=== PATIENT | female | born 2000 | race Caucasian/White ===

== ENCOUNTER 2022-07-26 06:07 | Day surgery (SDC) | payer OTHER ==
[2022-07-26] MEDS ORDERED: DIPRIVAN 200 MG/20 ML IV ONE ×2 (06:21→07:54)
[2022-07-26] MEDS ORDERED: SUBLIMAZE 100 MCG/2 ML ONE (06:22)
[2022-07-26] MEDS ORDERED: Xylocaine 1% Vial 30 ML PF IJ ONE (06:22)
[2022-07-26] MEDS ORDERED: Marcaine Mpf 0.5% Vial 30 Ml ONE ×2 (06:22→07:13)
[2022-07-26] MEDS ORDERED: Versed 2 MG/2 ML Injection ONE (06:22)
[2022-07-26 06:30] LABS: HCG URINE TEST NEGATIVE (NEGATIVE)
[2022-07-26] MEDS ORDERED: Lactated Ringers 1,000 ML IV SCH (06:30)
[2022-07-26 06:56] VITALS: O2SAT 96
[2022-07-26] MEDS ORDERED: Lactated Ringers 1,000 ML IV ONE (06:58)
[2022-07-26] MEDS ORDERED: CEFAZOLIN 2 GM-D5W BAG** 2 GM/50 ML ML IV ONE (07:10)
[2022-07-26] MEDS ORDERED: CEFAZOLIN 2 GM-D5W BAG** 2 GM/50 ML ML IV SCH (07:30)
[2022-07-26] MEDS ORDERED: TORAdol 30 mg Injection ONE (08:15)
[2022-07-26] MEDS ORDERED: DEMEROL 50 MG ONE (08:57)
--- NOTE | 2022-07-26 09:01 | XRAY ---
Indication: Left 1st MTP arthrotomy. Intraoperative fluoroscopy provided for 16 seconds. 2 digital spot images submitted for interpretation demonstrates manipulation great toe. Correlate with intraoperative findings/report.
[2022-07-26 09:48] VITALS: BP 117/68; PULSE 77
--- NOTE | 2022-07-26 10:17 | OP ---
SURGERY DATE/TIME: 07/26/2022 0821 PREOPERATIVE DIAGNOSES: 1) Posttraumatic arthritis left distal interphalangeal joint. 2) Pain left foot. POSTOPERATIVE DIAGNOSES: 1) Posttraumatic arthritis left distal interphalangeal joint. 2) Pain left foot. PROCEDURES: 1) Arthrotomy left distal interphalangeal joint. 2) Exostectomy left distal phalanx. SURGEON: Farrukh Martinez DPM. RADIAL DRILL PRESS OPERATOR FOR PLASTIC: None. ANESTHESIA: MAC. HEMOSTASIS: Ankle tourniquet set to 250 mm of Mercury for 13 minutes. ESTIMATED BLOOD LOSS: Minimal. INJECTABLES: 18 cc of a 1:1 mixture of 1% lidocaine plain and 0.5% bupivacaine plain injected in a hallux block-type fashion. INDICATIONS FOR PROCEDURE: Rowena is a very pleasant 22-year-old female who while working for [employer] dropped a box on her toe. She was diagnosed by another physician with intraarticular fracture. This was treated conservatively and the patient did have continued pain going forward. At this time the patient has been seven months with this pain and has had multiple opinions from physicians and is looking for some relief. Discussion in regards to options were held with the patient. The patient would like to proceed with an option that is potentially definitive in fixing her pain. However, she is not interested in a fusion. Discussion continued and the patient would like to continue with a possible exostectomy for the intraarticular portion of the fracture in the distal interphalangeal joint. For this recommendation was to take the bone at a slight angle so if there is a heterotopic ossification that she is able to have possible growth with no recurrence into the joint. The patient agreed to this decision. No guarantees were provided. Initial presentation the option of arthrodesis was provided. The patient does understand that there is a possibility for failure. Discussion was held that the lateral collateral ligament maybe violated and a change in toe position is possible. However intraoperatively we will attempt to repair the lateral collateral ligament and the distal interphalangeal joint. The patient understands all risks including but not limited to infection, hematoma, seroma, possibility of delayed wound healing, nonwound healing, possibility of failure of surgical intervention, possible need for surgical intervention at a later date. No guarantees were provided as to the outcome of surgical intervention at this time. It is with that we decided to proceed. DESCRIPTION OF PROCEDURE AND FINDINGS: The patient was brought into the OR and placed on the OR table in the supine position. A well-padded ankle tourniquet was applied to the left ankle. The tourniquet was set to 250 mm of Mercury. Monitored anesthesia care was administered until the patient was sedated. The left lower extremity was then prepped and draped in the typical sterile fashion. A block was introduced into the toe in a hallux block-type fashion utilizing 10 cc of a 1:1 mixture of 1% lidocaine plain and 0.5% bupivacaine plain. Following this the tourniquet was inflated to 250 mm of Mercury after exsanguination. At this time a linear incision was made along the resting skin tension line at the top of the knuckle of the interphalangeal joint this was quickly dissected down to the level of the interphalangeal joint. Immediately a Deport was introduced into the site and run across the articular surface distally of the base of distal phalanx. There was a snag at the lateral aspect of this joint thought to be the intraarticular portion. There was an immediate step-off appreciated. From that standpoint we proceeded with flush to the joint utilizing rongeur. Under fluoroscopic guidance the intraarticular portion was resected at approximately 45 degree angle in order to prevent any growth into the joint. Following this the lateral collateral ligaments were repaired utilizing 4-0 Monocryl. The skin subcu was coapted in simple buried-type fashion utilizing 4-0 Monocryl once again and 3-0 Nylon was then utilized to coapt the skin in a horizontal mattress-type fashion. The tourniquet was let down with a total of 13 total tourniquet minutes. Estimated blood loss was minimal. The patient was then placed in dressings consisting of Iodine, Adaptic, 4x4, Kerlix and ZORA. The patient was then reversed from anesthesia and returned to the postoperative anesthesia care unit with vital signs stable and vascular status intact. The patient handled the anesthesia as well as the procedure without significant complication. Postoperative orders as indicated in the patient's discharge chart.
== END 2022-07-26 10:15 | disposition home or self-care (01) ==
LOC: SDC 06:07
PROVIDERS: ATTEND Podiatrist Foot & Ankle Surgery
DX: M19.172 Post-traumatic osteoarthritis, left ankle and foot (principal); M79.672 Pain in left foot
CPT/HCPCS: 36415; 73620; 76000; 81025; J0690; J1885; J2001; J2175; J2250; J2704; J3010

== ENCOUNTER 2022-12-06 09:08 | Day surgery (SDC) | payer OTHER ==
[2022-12-06 09:51] LABS: HCG URINE TEST NEGATIVE (NEGATIVE)
[2022-12-06 10:00] VITALS: RESP 18
[2022-12-06] MEDS ORDERED: CEFAZOLIN 2 GM-D5W BAG** 2 GM/50 ML ML IV SCH (10:00)
[2022-12-06] MEDS ORDERED: Lactated Ringers 1,000 ML IV SCH (10:00)
[2022-12-06] MEDS ORDERED: Lactated Ringers 1,000 ML IV ONE ×2 (10:05→12:29)
[2022-12-06] MEDS ORDERED: CEFAZOLIN 2 GM-D5W BAG** 2 GM/50 ML ML IV ONE (10:05)
[2022-12-06 10:22] LABS: Hematocrit 39.3 % (35-47); Hemoglobin 13.4 g/dL (12.0-16.0); Mean Cell Volume 89.3 fL (78-100); Mean Corpuscular Hemoglobin 30.5 pg (26-32); Mean Corpuscular Hgb Concent. 34.1 g/dL (32-36); Mean Platelet Volume 9.7 fL (7.5-11.0); Platelet Count 235 x10^3/uL (150-450); Red Cell Distribution Width 12.1 % (11.5-14.0)
[2022-12-06 10:33] LABS: ALBUMIN 4.6 g/dL (3.5-5.0); ALKALINE PHOSPHATASE 61 U/L (38-126); ANION GAP 13.8 MEQ/L (5-15); BLOOD UREA NITROGEN 9 mg/dL (7-17); CHLORIDE 106 mmol/L (98-107); Calcium 8.9 mg/dL (8.4-10.2); Carbon Dioxide 24 mmol/L (22-30); Creatinine 1 0.63 mg/dL (0.52-1.04); EST GLOMERULAR FILTRATION RATE > 60.0 ML/MIN; Glucose 93 mg/dL (74-106); Potassium 3.8 mmol/L (3.5-5.1); SGOT/AST 29 U/L (14-36); SGPT/ALT 23 U/L (0-35); SODIUM 140 mmol/L (137-145); Total Protein 7.9 g/dL (6.3-8.2)
[2022-12-06] MEDS ORDERED: Xylocaine-Mpf 2% 5 Ml Vial ONE (11:36)
[2022-12-06] MEDS ORDERED: XYLOCAINE 1% HCL 20 ML MDV ONE (11:36)
[2022-12-06] MEDS ORDERED: SUBLIMAZE 100 MCG/2 ML ONE (11:36)
[2022-12-06] MEDS ORDERED: Versed 2 MG/2 ML Injection ONE (11:36)
[2022-12-06] MEDS ORDERED: DIPRIVAN 200 MG/20 ML IV ONE (11:36)
[2022-12-06] MEDS ORDERED: Marcaine Mpf 0.5% Vial 30 Ml ONE (11:36)
[2022-12-06] MEDS ORDERED: DEMEROL 50 MG ONE (12:46)
--- NOTE | 2022-12-06 12:53 | XRAY ---
51 seconds of fluoroscopy was used in surgery for a left 1st interphalangeal joint arthrodesis.
--- NOTE | 2022-12-06 13:01 | XRAY ---
Indication: Left 1st IP joint arthrodesis. Intraoperative fluoroscopy was provided 51 seconds. 11 digital spot images submitted for interpretation ultimately demonstrates 1st IP joint arthrodesis with intact single screw. Correlate with intraoperative findings/report.
[2022-12-06 13:28] VITALS: TEMP 98.1
[2022-12-06 13:45] VITALS: BP 119/80; PULSE 86; O2SAT 97
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
== END 2022-12-06 14:10 | disposition home or self-care (01) ==
LOC: SDC 09:08
PROVIDERS: ATTEND Podiatrist Foot & Ankle Surgery
DX: M13.872 Other specified arthritis, left ankle and foot (principal); M79.672 Pain in left foot; R26.2 Difficulty in walking, not elsewhere classified
CPT/HCPCS: 28755; 36415; 73630; 76000; 80053; 81025; 85027; C1713; J0690; J2175; J2250; J2704; J3010